=== PATIENT | female | born 1995 | race Caucasian/White ===

== ENCOUNTER 2017-06-23 | Inpatient (IN) | payer MEDICAID ==
[2017-06-23] MEDS ORDERED: LIDOCAINE HCL 50 ML VIAL PERI PRN (00:05)
[2017-06-23] MEDS ORDERED: MISOPROSTOL 100 MCG TABLET VG PRN (00:05)
[2017-06-23] MEDS ORDERED: RINGER'S SOLUTION,LACTATED 1,000 ML IV ONE ×2 (00:05→13:06)
[2017-06-23] MEDS ORDERED: OXYTOCIN/DEXTROSE 5%-WATER 30 UNITS/500 ML BAG IV ONE ×2 (00:05→21:07)
[2017-06-23] MEDS ORDERED: ONDANSETRON HCL/PF 2 MG/ML VIAL IV PRN ×2 (00:05→13:02)
[2017-06-23 02:00] LABS: Cocaine Ur Negative (NEGATIVE); Urine Barbiturate Negative (NEGATIVE); Urine Benzodiazepines Negative (NEGATIVE); Urine Opiates Negative (NEGATIVE); Urine PCP Negative (NEGATIVE); Urine THC Negative (NEGATIVE)
[2017-06-23] MEDS ORDERED: TERBUTALINE SULFATE 1 MG/ML VIAL SC ONE (06:29)
--- NOTE | 2017-06-23 08:22 | PN ---
Progess Note - Interim Narrative: 06/23/17 08:16 Patient received 1 dose of Cytotec around midnight and has been chelsey well throughout the morning. She had one spontaneous deceleration to the 90s lasting approximately 6 minutes which recovered with position changes. tracing has a low baseline of 110 mL/m but has good goyo-hq-ivnd variability, good accelerations, and no further decelerations. Cervix-2/50/-2 Impression: 40 4/7 week IUP, induction of labor for postdates Plan: Pitocin titration as needed.
[2017-06-23] MEDS ORDERED: CALCIUM CARBONATE 500 MG TAB.CHEW PO PRN (08:57)
[2017-06-23] MEDS ORDERED: NALOXONE HCL 1 MG/1 ML SYRG IV PRN (13:02)
[2017-06-23] MEDS ORDERED: BUPIVACAINE HCL/0.9 % NACL/PF 250 ML EP PRN (13:02)
[2017-06-23] MEDS ORDERED: fentaNYL CITRATE/PF 50 MCG/ML AMPUL IT SCH (13:15)
--- NOTE | 2017-06-23 13:17 | PN ---
Progess Note - Interim Narrative: 06/23/17 13:16 Patient rating her contractions 6-7/10. Desires epidural Vital signs stable. Pitocin at 6 mu/min. FHT: 110 baseline, reassuring Contractions q 2-3 min Cervix: 3/75/-2, AROM-clear Impression: Intrauterine at 40 4/7 weeks induction of labor for postdates Plan: Patient fluid bolus and request epidural
[2017-06-23] MEDS: DEXTROSE 5%-LACTATED RINGERS 1,000 ML IV PRN ×2 (14:33→18:24)
--- NOTE | 2017-06-23 15:40 | OR ---
Anesthesia Procedure Note - Anesthesia Procedure Note Narrative: Vital Signs - Last Taken Temp 36.4 C L 06/23/17 13:47 Pulse 79 06/23/17 13:47 Resp 20 06/23/17 13:47 BP 118/77 06/23/17 13:47 Pulse Ox 99 06/23/17 13:47 06/23/17 15:40 ANESTHESIA PROCEDURE NOTE Date of Procedure: 06/23/2017 Time of procedure: 1400. Performed by: Nain Armstrong CRNA Stripping Cutter And Winder: None. Preprocedure diagnosis: Active labor. Post procedure diagnosis: Same. Procedure: Insertion of labor epidural. Indications: The patient is a 21 -year-old prima para female in active labor requesting labor epidural for pain management. Findings: See below. Details of the procedure: The patient was placed in a sitting position. Back was prepped with DuraPrep. Patient was then draped in a sterile fashion. Lidocaine 1% was infiltrated to the skin and subcutaneous tissues at the level of the L3 4 interspace. The epidural space was identified using a 18-gauge Tuohy needle with rxdo-vl-hdeiktggji technique. 20 mcg fentanyl was given intrathecally using a 27 ga. spinal needle. Epidural catheter was inserted without difficulty. Negative test dose was elicited using 5 mL of 1.5% preservative-free lidocaine plus epinephrine 1 200,000. The epidural catheter was then taped and secured in place. EBL: Minimal. Fluids: N/A. Specimen: N/A. Post procedure condition: The patient tolerated the procedure well. No complications were noted. Thank you for this consultation. Henley CRNA
[2017-06-23] MEDS ORDERED: SENNOSIDES 8.6 MG TABLET PO PRN (21:07)
[2017-06-23] MEDS ORDERED: BISACODYL 10 MG SUPP.RECT RC PRN (21:07)
[2017-06-23] MEDS ORDERED: oxyCODONE HCL/ACETAMINOPHEN 1 TAB TABLET PO PRN (21:07)
[2017-06-23] MEDS ORDERED: HYDROCORTISONE 30 APPL TUBE TP PRN (21:07)
[2017-06-23] MEDS ORDERED: BENZOCAINE/MENTHOL 81 SPRAY CAN TP PRN (21:07)
--- NOTE | 2017-06-23 21:10 | OR ---
Operative Report - Dictated Report Narrative: Spontaneous vaginal delivery of viable male at 2040 on 06/23/2017 with Apgars 8 and 9, weighing 3436 g in JANETH position with bilateral hands at chin. Cord clamping delayed approximately 1 minute Placenta delivered complete, intact, with three vessel cord Estimated blood loss: 100 mL Lacerations: Second-degree vaginal laceration (4 cm) repaired with 3-0 Vicryl Rapide. Bilateral periurethral laceration with no repair.
[2017-06-23] MEDS: GLYCERIN/WITCH HAZEL LEAF 40 APPL BOX TP PRN (22:56)
[2017-06-23] MEDS: IBUPROFEN 800 MG TABLET PO PRN (22:56)
[2017-06-23] MEDS: oxyCODONE HCL/ACETAMINOPHEN 1 TAB TABLET PO PRN (22:57)
[2017-06-24] MEDS: oxyCODONE HCL/ACETAMINOPHEN 1 TAB TABLET PO PRN ×5 (03:30→20:16)
[2017-06-24] MEDS: IBUPROFEN 800 MG TABLET PO PRN ×3 (05:57→20:16)
[2017-06-24] MEDS: FAMOTIDINE 20 MG TABLET PO SCH ×2 (09:03→20:18)
[2017-06-24] MEDS: DOCUSATE SODIUM 100 MG CAPSULE PO SCH ×2 (09:03→20:16)
[2017-06-24] MEDS: PRENATAL VITS96/IRON FUM/FOLIC 1 TAB TABLET PO SCH (09:03)
--- NOTE | 2017-06-24 15:59 | PN ---
Subjective - Date and Time Seen Date: 06/24/17 Time: 15:58 Objective - Vitals Vitals: Last Vital Signs Temp 36.5 C 06/24/17 13:28 Pulse 73 06/24/17 13:28 Resp 18 06/24/17 13:28 BP 114/56 06/24/17 13:28 Pulse Ox 99 06/24/17 13:28 Patient denies complaints. Lochia wnl Abdomen - soft, nontender Uterus - firm, at umbilicus - 1 No calf tenderness Impression: day #1 - s/p spontaneous vaginal delivery. Plan: Continue routine care Cauti Physician Documentation - Urinary Catheter Management Urethral (Ervin) Date of Insertion: 06/23/17 Time of Insertion: 14:14 Date of Removal: 06/23/17 Time of Removal: 20:00
[2017-06-25] MEDS: oxyCODONE HCL/ACETAMINOPHEN 1 TAB TABLET PO PRN ×4 (00:16→15:50)
[2017-06-25] MEDS: IBUPROFEN 800 MG TABLET PO PRN ×3 (03:34→15:49)
[2017-06-25] MEDS: FAMOTIDINE 20 MG TABLET PO SCH (09:29)
[2017-06-25] MEDS: DOCUSATE SODIUM 100 MG CAPSULE PO SCH (09:30)
[2017-06-25] MEDS: PRENATAL VITS96/IRON FUM/FOLIC 1 TAB TABLET PO SCH (09:34)
[2017-06-25 10:02] VITALS: BP 114/58
--- NOTE | 2017-06-25 16:49 | PN ---
Subjective - Date and Time Seen Date: 06/25/17 Time: 16:49 Objective - Vitals Vitals: Last Vital Signs Temp 36.8 C 06/25/17 10:00 Pulse 77 06/25/17 10:00 Resp 18 06/25/17 10:00 BP 114/58 06/25/17 10:00 Pulse Ox 100 06/25/17 10:00 Patient denies complaints. Lochia wnl Abdomen - soft, nontender Uterus - firm, at umbilicus - 2 No calf tenderness Impression: day #2 - s/p spontaneous vaginal delivery. First trimester THC use-urine drug screen in middle of and admission negative. Plan: Routine discharge instructions Cauti Physician Documentation - Urinary Catheter Management Urethral (Ervin) Date of Insertion: 06/23/17 Time of Insertion: 14:14 Date of Removal: 06/23/17 Time of Removal: 20:00
[2017-06-25] MEDS: GLYCERIN/WITCH HAZEL LEAF 40 APPL BOX TP PRN (16:57)
== END 2017-06-25 17:45 | disposition home or self-care (01) | DRG 775 ==
LOC: OB
PROVIDERS: ADMIT Obstetrics & Gynecology; ATTEND Obstetrics & Gynecology
PROC: 10E0XZZ Delivery of Products of Conception, External Approach (ICD-10-PCS; principal; 2017-06-23)
PROC: 0KQM0ZZ Repair Perineum Muscle, Open Approach (ICD-10-PCS; 2017-06-23)
PROC: 10907ZC Drainage of Amniotic Fluid, Therapeutic from Products of Conception, Via Natural or Artificial Opening (ICD-10-PCS; 2017-06-23)
PROC: 4A1HXCZ Monitoring of Products of Conception, Cardiac Rate, External Approach (ICD-10-PCS; 2017-06-23)
PROC: 00HU33Z Insertion of Infusion Device into Spinal Canal, Percutaneous Approach (ICD-10-PCS; 2017-06-23)
DX: O48.0 Post-term pregnancy (principal); O99.321 Drug use complicating pregnancy, first trimester; O70.1 Second degree perineal laceration during delivery; O99.02 Anemia complicating childbirth; D64.9 Anemia, unspecified; Z3A.41 41 weeks gestation of pregnancy; Z37.0 Single live birth